=== PATIENT | male | born 1985 | race Caucasian/White ===

== ENCOUNTER 2023-02-07 13:15 | Inpatient (IN) | payer SELFPAY ==
[2023-02-07 14:00] VITALS: BP 111/63; PULSE 90; RESP 14; TEMP 37.2; O2SAT 96
[2023-02-07 15:29] VITALS: BMI 24.5
--- NOTE | 2023-02-07 15:54 | EX.PCM.HP.RE ---
HPI - General General Date of Admission: 02/07/23 Date of Service: 02/07/23 Chief Complaint: Here for 3 hours daily rehabilitation. HPI Narrative CELI CRUZ, is a 37 Male who presents with followin01/31/2023 Admit to Hospital for trauma. Riding bucking horse, horn of saddle jammed into suprapubic region, immediate suprapubic, right hip pain, no fall, no LOC, no head injury. Difficulty walking afterwards. Blood pressure 90 systolic given 1 liter LR, 1 unit PRBC. Suprapubic region hit by horn of saddle, voiding well. No hematuria, suprapubic pain, right hip pain. Hypotensive. CT A/P extraperitoneal hematoma, pubic diastasis. CT cystogram negative for injury. Orthopedics, bedrest for pubic diastasis. Transfuse blood for hematoma, acute blood loss anemia. Hematoma of perineum, scrotum, base of pelvis. [place] with yellow urine. Hold DVT prophylaxis. PT/OT debility. 02/02/2023 Open versus closed reduction internal fixation of pelvis CRPP (closed reduction percutaneous pinning). 02/04/2023 Increase pain after PT, pain improved overnight. Tolerating light PO intake, [place] out. Anterior pelvic hemovac in place. NWB BLE, slide transfer for 8 weeks (03/28/2023). Lovenox, SCD's, KUNAL's DVT prophylaxis. Perioperative Cefazolin complete. 02/06/2023 Anxious, seeking counseling for PTSD. Lovenox 30mg sc q12 dvt prophylaxis. Pain 3 out of 10. Miralax, senokot-s, Magnesium citrate bowel regimen. 02/07/2023 Admit to with debility, here for 3 hours daily rehabilitation, strengthening, prior to disposition determination. [facility] Medical History (Updated 02/07/23 @ 16:[address] Kenji Chaves MD) Pelvic fracture Trauma Home Medications acetaminophen 500 mg tablet 1,000 mg PO Q8H pain 02/07/23 [History Last Taken 02/07/23] ascorbic acid (vitamin C) 500 mg tablet 500 mg PO DAILY spplement 02/07/23 [History Last Taken 02/07/23] celecoxib 100 mg capsule (Celebrex) 100 mg PO BID Anti-inflammatory 02/07/23 [History Last Taken 02/07/23] enoxaparin 40 mg/0.4 mL subcutaneous syringe (Lovenox) 40 mg subcut DAILY DVT prevention 02/07/23 [History Last Taken 02/07/23] ferrous sulfate 325 mg (65 mg iron) tablet (Iron (ferrous sulfate)) 325 mg PO QODAY supplement 02/07/23 [History Last Taken 02/07/23] folic acid 1 mg tablet 1 mg PO DAILY supplement 02/07/23 [History Last Taken 02/07/23] melatonin 3 mg capsule 3 mg PO QHS sleep 02/07/23 [History Last Taken 02/06/23] methocarbamol 750 mg tablet 750 mg PO Q6H muscle relaxer 02/07/23 [History Last Taken 02/07/23] oxycodone 5 mg tablet 5 mg PO Q4H pain 02/07/23 [History Last Taken 02/07/23] Allergy/AdvReac Type Severity Reaction Status Date / Time No Known Allergies Allergy Verified 02/07/23 14:39 Family History no significant family his Surgical History no surgical history Social History (Updated 02/07/23 @ 16:[address] Kenji Chaves MD) household members: adopted family Smoking Status: Never smoker alcohol intake: never substance use type: does not use ROS Constitutional Constitutional: Denies chills, fever(s) or weight gain ENT HEENT: Denies headache(s), nasal congestion or nasal discharge Cardiovascular Cardiovascular: Denies chest pain or palpitations Respiratory/Chest Respiratory/Chest: Denies cough, excessive phlegm production or shortness of breath with exertion Gastrointestinal Gastrointestinal: Denies abdominal pain, nausea or vomiting Genitourinary Genitourinary: Denies dysuria Musculoskeletal Musculoskeletal: Denies joint pain or joint swelling Integumentary Integumentary: Denies rash or wounds Neurologic Neurologic: Denies focal weakness, numbness or tingling Psychiatric Psychiatric: Denies anxiety, auditory hallucinations, depression, homicidal ideation or suicidal ideation Vital Signs Vital Signs Vital Signs: 02/07/23 14:00 Temperature 99.0 F Temperature Source Temporal Pulse Rate 90 Respiratory Rate 14 Blood Pressure 111/63 Blood Pressure Mean 79 Blood Pressure Source Monitor Blood Pressure Position Semi-Fowlers Blood Pressure Location Right Arm Pulse Ox 96 Oxygen Delivery Method Room Air Weight Weight: 73 kg Body Mass Index (BMI) 24.5 Indicators for Scoring Admitted with or Primary Diagnosis of CVA/Stroke: No Hx of CVA/Stroke: No Modified Perlita Score MRS Score at time of Evaluation: 4-Moderate/severe disability Physical Exam Const alert General Appearance: cooperative HEENT normocephalic Eyes PERRL and EOMs intact bilaterally Neck supple, no JVD and no carotid bruits Resp normal respiratory effort, normal air movement and clear to auscultation bilaterally Cardio regular rate and regular rhythm GI normal to inspection, nondistended, normoactive bowel sounds, non-tender and non-distended Extremity normal capillary refill General Extremity: Negative for edema Skin no rashes or lesions noted General Skin Exam: no breakdown Psych affect normal Appearance: appropriate Assessment & Plan Assessment/Plan (1) Acute blood loss anemia: (2) Hematoma of extraperitoneal space: (3) Debility: (4) Pelvic fracture: PLAN: Plan 37 year old male with below past medical history hospitalized for traumatic horseback riding accident, pelvic diastasis, extraperitoneal hematoma, acute blood loss anemia, underwent ORIF (Open reduction internal fixation symphysis pubis/CRPP (Closed reduction percutaneous pinning) 02/02/2023 admitted to for 3 hours daily rehabilitation, strengthening, prior to disposition determination. Debility - PT/OT. Pain - Tylenol 1000mg q8, Oxycodone 5-10mg q4 prn. Bowel - Miralax 17gm daily, senna/colace 2 tablets bid, Dulcolax 10mg pr x 1 prn, MOM 30ml po x 1 prn. DVT prophylaxis - Lovenox 40mg sc daily. Vitamin C deficiency - Vitamin C 500mg daily. Osteoarthritis - Celebrex 100mg bidcm. Iron deficiency anemia - Ferrous sulfate 325mg every other day. Folate deficiency - Folic acid 1mg daily. Insomnia - Melatonin 3mg qhs. Muscle spasm - Robaxin 750mg q6.
[2023-02-07] MEDS: Methocarbamol 750 MG Tablet PO (16:04)
[2023-02-07] MEDS: Celecoxib 100 MG Capsule PO (16:04)
[2023-02-07] MEDS: oxyCODONE 5 MG Tablet PO (18:10)
[2023-02-07 20:00] VITALS: BP 115/73; PULSE 90; RESP 20; TEMP 37.2; O2SAT 96
[2023-02-07] MEDS: MELATONIN 3 MG TABLET PO (21:00)
[2023-02-07] MEDS: Acetaminophen 500 MG Tablet 1000 MG PO (21:00)
[2023-02-07] MEDS: Senna/Docusate Sodium 1 Tablet 2 TABLET PO (21:00)
[2023-02-08] MEDS: Methocarbamol 750 MG Tablet PO ×5 (00:57→23:06)
[2023-02-08] MEDS: oxyCODONE 5 MG Tablet PO (05:04)
[2023-02-08] MEDS: Acetaminophen 500 MG Tablet 1000 MG PO ×3 (05:05→21:33)
[2023-02-08] MEDS: Enoxaparin 40 MG/0.4 ML Syringe SC (05:05)
[2023-02-08 07:36] VITALS: BP 125/69; PULSE 99; RESP 16; TEMP 37.2; O2SAT 94
[2023-02-08 08:10] VITALS: O2SAT 96
[2023-02-08] MEDS: Folic Acid 1 MG Tablet PO (08:34)
[2023-02-08] MEDS: Senna/Docusate Sodium 1 Tablet 2 TABLET PO ×2 (08:34→21:33)
[2023-02-08] MEDS: Ascorbic Acid 500 MG Tablet PO (08:34)
[2023-02-08] MEDS: Celecoxib 100 MG Capsule PO ×2 (08:34→17:37)
[2023-02-08 09:34] LABS: Absolute Lymphocyte Count 1.64 X10^3/uL (0.83-4.51); Basophil# 0.08 X10^3/uL; Eosinophil# 0.72 X10^3/uL; Eosinophils% 8.9 % (0-5); Hematocrit 29.1 % (40-54); Hemoglobin 9.9 g/dL (13.0-16.5); Lymphocyte # 1.64 X10^3/ul (0.83-4.51); Lymphocyte % 20.2 % (19-41); Mean Corpuscular Hgb 32.1 pg (27.0-32.0); Mean Corpuscular Volume 94.5 fL (80-94); Mean Platelet Vol. 8.5 fl (6.2-12.0); Monocyte# 0.66 X10^3/uL; Monocyte% 8.1 % (0-10); NRBC Flagged by Analyzer 0 % (0-5); Neutrophil # 4.95 X10^3/uL (2.7-7.7); Neutrophil % 60.8 % (47-70); Platelet Count 453 K/mm3 (150-450); RBC Distribution Width CV 12.4 % (11.6-14.6); RBC Distribution Width SD 41.1 fl (35.1-43.9); Red Blood Count 3.08 M/mm3 (4.6-6.2); White Blood Count 8.1 K/mm3 (4.4-11.0)
[2023-02-08 10:10] LABS: ALB/GLOB Ratio 0.8 RATIO (0.9-2.4); AST(SGOT) 30 U/L (15-37); Alanine Aminotransfer ALT/SGPT 35 U/L (16-61); Albumin, Serum 3.1 g/dL (3.2-5.0); Alkaline Phosphatase 45 U/L (45-117); Anion Gap 5 (5-15); BUN 21 mg/dL (7-18); BUN/Creat Ratio 26.4 RATIO (10-20); Calcium,Total 8.6 mg/dL (8.5-10.1); Chloride 104 mmol/L (98-107); EST Glomerular Filtration Rate 115 mL/min (>60); Est Glom Filt Rate - Afr Amer 140 mL/min (>60); Estimated Creatinine Clearance 121.13 ml/min; Globulin 3.9 g/dL (2.2-4.2); Glucose 129 mg/dL (74-106); Magnesium 2.1 mg/dL (1.6-2.6); Phosphorus 3.2 mg/dL (2.5-4.9); Potassium 3.5 mmol/L (3.5-5.1); Sodium Level 135 mmol/L (136-145)
--- NOTE | 2023-02-08 10:39 | PCM.RU.PYE ---
Admission Information Primary Diagnosis:: pelvic diastasis, extraperitoneal hematoma, acute blood loss anemia Status Changes from Prescreening?: No changes Identified Actual Problem List:: Bleeding, Pain, ALteration in Cmfrt, Mobility Impaired, Self Care Deficit, Ineffective Communication, Know.Dfct/Disease Process and Alteration-Leisure Activ. Potential Problem List:: DVT, Bleeding, Infection, UTI, Aspiration, Falls, Skin Integrity and Depression Risk of Complications DVT: LMWH Bleeding: Monitor Lab Values, Nursing to Teach Precautions for anti-coagulation therapy., Wound, if applicable, to be assessed every shift. and Stroke patients assessed for lethargy or change in status. Infection: Clinical Staff to Monitor for S/S of infection: and S/S of infection include fever, redness, warmth, etc. Urinary Tract Infection: Monitor for frequency, burning, discomfort, or incontinence. and Nursing will obtain urine sample for urinalysis and C&S when ordered. Aspiration: Clinical staff will monitor for coughing, drooling, congestion., Speech will evaluate swallowing and dsyphasia. and Nursing will monitor patient swallowing during meals. Falls: Patient will be evaluated for Fall Precautions and Patient will be placed on Fall Precautions as indicated per protocol. Skin Breakdown: Nursing will assess skin daily using assessment tool. and Nursing will place on Skin Breakdown Precautions as indicated. Pain: Clinical staff will assess patient's pain level per protocol., Medications will be given, if needed, and the pain level reassessed. and Other methods: Massage, distraction, decrease stimulus, etc. used PRN. Plan of Care Patient requires physician specializing in physical medicine and rehab oversight to provide close medical supervision of rehab issues including: Pain Management, Sleep Problems, Bowel and Bladder, Medical and co-morbidity Management, DVT prophylaxis, Rehabilitation Leadership and Coordination of treatment team Patient needs Physical Therapy: At least 5 out of 7 days and For a minimum of 1.5 hrs Patient needs Physical Therapy to improve:: Mobility, Strengthening, Transfers, Stretching, ROM and Endurance Patient needs Occupational Therapy: At least 5 out of 7 days and For a minimum of 1.5 hrs Patient needs Occupational Therapy to improve ADL's incl.: Eating, Grooming, Bathing, Dressing, Toileting, Toilet transfers, Community Reintegration, Higher functioning activities, Household tasks, Adaptive Equipment and Other activities as determined Patient requires 24/7 Rehabilitation Nursing for: Pain Issues, Identifying and preventing risk factors, Monitoring and reporting current medical conditions, Assisting with ambulation, transfer, and all ADL's, Teaching patients about disease process and medications, Family teaching, Providing safe environment, Bowel and Bladder Issues, Skin integrity and Medication Management Patient needs Cloud Engineer/ Case Management for: Discharge Planning, Arranging Home Equipment or Services and Family Interventions Patient needs Dietary and Nutrition Services for: Adequate Nutrition, Nutritional Supplements and Nutritional Education Goals Patient will remain: free from falls and or injury at time of discharge. Patient will perform bed mobility at: - (Independent) Patient will complete transfers from bed to chair at: - (with slideboard) Patient will complete lower body dressing at: - (TN) Patient will have pain level of: of 3 or less Patient's skin will: remain intact and free from infection. Patient will receive: adequate nutrition. Discharge Planning Pt Prognosis for Sig. Practical Improv. w/in Reasonable Time: Good Estimated Length of stay (days): 28 Anticipated D/C Destination: Residential Facility Was Preadmission Assessment Accurate?: Yes
[2023-02-08 21:30] VITALS: BP 100/64; PULSE 77; RESP 16; TEMP 36.7; O2SAT 96
[2023-02-08] MEDS: MELATONIN 3 MG TABLET PO (21:33)
[2023-02-09] MEDS: Methocarbamol 750 MG Tablet PO ×4 (06:34→23:58)
[2023-02-09] MEDS: Acetaminophen 500 MG Tablet 1000 MG PO ×3 (06:34→20:27)
[2023-02-09] MEDS: Enoxaparin 40 MG/0.4 ML Syringe SC (06:34)
[2023-02-09 08:14] VITALS: O2SAT 96
[2023-02-09] MEDS: Senna/Docusate Sodium 1 Tablet 2 TABLET PO (08:44)
[2023-02-09] MEDS: Ascorbic Acid 500 MG Tablet PO (08:45)
[2023-02-09] MEDS: Celecoxib 100 MG Capsule PO ×2 (08:45→17:22)
[2023-02-09] MEDS: Ferrous Sulfate 325 MG Tablet PO (08:45)
[2023-02-09] MEDS: Folic Acid 1 MG Tablet PO (08:45)
[2023-02-09 10:00] VITALS: BP 116/74; PULSE 89; RESP 14; TEMP 36.6; O2SAT 97
[2023-02-09 20:22] VITALS: BP 120/84; PULSE 88; RESP 16; TEMP 37.1; O2SAT 97
[2023-02-09] MEDS: MELATONIN 3 MG TABLET PO (20:27)
[2023-02-10 05:53] LABS: Hematocrit 30.5 % (40-54); Hemoglobin 10.1 g/dL (13.0-16.5)
[2023-02-10 06:00] VITALS: BMI 24.5
[2023-02-10] MEDS: Acetaminophen 500 MG Tablet 1000 MG PO ×3 (06:06→21:37)
[2023-02-10] MEDS: Methocarbamol 750 MG Tablet PO ×3 (06:06→17:11)
[2023-02-10] MEDS: Enoxaparin 40 MG/0.4 ML Syringe SC (06:06)
--- NOTE | 2023-02-10 07:35 | PN.REHAB_ITS ---
Subjective Subjective Patient seen, examined. He is up in wheelchair, getting coffee. He said he had pain with therapy over the weekend, but the pain was expected with his injury, and he was able to abduct right hip, which he had trouble doing before. Objective Data Objective Data Vital Signs: Vital Signs Temp Pulse Resp BP Pulse Ox O2 Del Method 98.7 F 88 16 120/84 H 97 Room Air 02/09/23 20:22 02/09/23 20:22 02/09/23 20:22 02/09/23 20:22 02/09/23 20:22 02/09/23 20:22 Oxygen Delivery Method Room Air Weight: 73 kg Body Mass Index (BMI) 24.5 Intake & Output: Intake and Output for Last 24 Hours 02/08/23 02/09/23 02/10/23 23:59 23:59 23:59 Intake Total 760 / 760 1400 / 1400 300 / 300 Output Total 1150 / 1150 1000 / 1000 Balance -390 / -390 400 / 400 300 / 300 Lab / Micro Data Attestation: I reviewed the patient's lab results. 02/10/23 05:10 02/08/23 09:06 Labs: Laboratory Results - last 24 hr 02/10/23 05:10: Hgb 10.1 L, Hct 30.5 L Indicators for Scoring Admitted with or Primary Diagnosis of CVA/Stroke: No Hx of CVA/Stroke: No Modified Perlita Score MRS Score at time of Evaluation: 4-Moderate/severe disability Physical Exam Const alert General Appearance: cooperative HEENT normocephalic Eyes PERRL and EOMs intact bilaterally Neck supple, no JVD and no carotid bruits Resp normal respiratory effort, normal air movement and clear to auscultation bilaterally Cardio regular rate and regular rhythm GI normal to inspection, nondistended, normoactive bowel sounds, non-tender and non-distended Extremity normal capillary refill General Extremity: Negative for edema Skin no rashes or lesions noted General Skin Exam: no breakdown Psych affect normal Appearance: appropriate Assessment & Plan Assessment/Plan (1) Acute blood loss anemia: (2) Hematoma of extraperitoneal space: (3) Debility: (4) Pelvic fracture: PLAN: Plan 37 year old male with below past medical history hospitalized for traumatic horseback riding accident, pelvic diastasis, extraperitoneal hematoma, acute blood loss anemia, underwent ORIF (Open reduction internal fixation symphysis pubis/CRPP (Closed reduction percutaneous pinning) 02/02/2023 admitted to for 3 hours daily rehabilitation, strengthening, prior to disposition determination. * Debility - PT/OT. * Pain - Tylenol 1000mg q8, Oxycodone 5-10mg q4 prn. * Bowel - Miralax 17gm daily, senna/colace 2 tablets bid, Dulcolax 10mg pr x 1 prn, MOM 30ml po x 1 prn. * DVT prophylaxis - Lovenox 40mg sc daily. * Vitamin C deficiency - Vitamin C 500mg daily. * Osteoarthritis - Celebrex 100mg bidcm. * Iron deficiency anemia - Ferrous sulfate 325mg every other day. * Folate deficiency - Folic acid 1mg daily. * Insomnia - Melatonin 3mg qhs. * Muscle spasm - Robaxin 750mg q6. Capacity Capacity Assessment Tool Can the patient make a choice & communicate that choice?: Yes Can the patient understand benefits, risks and alternatives?: Yes Can the patient make a logical, rational choice?: Yes Is the choice the patient makes consistent w/ their values?: Yes Is there an impending, emergent risk to the patient?: No Does the patient have an Advance Directive?: No Is there a Surrogate Available?: Yes i.e. HCPOA: Yes i.e. close relative (spouse, child, parent, sibling)?: Yes
[2023-02-10 08:05] VITALS: BP 121/78; PULSE 85; RESP 16; TEMP 36.7; O2SAT 99
[2023-02-10] MEDS: Celecoxib 100 MG Capsule PO ×2 (08:46→17:12)
[2023-02-10] MEDS: Folic Acid 1 MG Tablet PO (08:46)
[2023-02-10] MEDS: Ascorbic Acid 500 MG Tablet PO (08:46)
[2023-02-10] MEDS: Senna/Docusate Sodium 1 Tablet 2 TABLET PO (08:47)
[2023-02-10 19:45] VITALS: BP 127/77; PULSE 77; RESP 18; TEMP 36.8; O2SAT 98
[2023-02-10] MEDS: MELATONIN 3 MG TABLET PO (21:37)
[2023-02-11] MEDS: Methocarbamol 750 MG Tablet PO ×4 (00:45→17:04)
[2023-02-11] MEDS: Enoxaparin 40 MG/0.4 ML Syringe SC (05:57)
[2023-02-11] MEDS: Acetaminophen 500 MG Tablet 1000 MG PO ×3 (05:58→21:29)
[2023-02-11 08:04] VITALS: BP 116/70; PULSE 69; RESP 16; TEMP 36.7; O2SAT 97
--- NOTE | 2023-02-11 08:35 | PN.REHAB_ITS ---
Subjective Subjective Patient seen, examined. He is asking to take a shower, midline incision is clean, okay to shower. He has pain with therapy, but it is controlled. Objective Data Objective Data Vital Signs: Vital Signs Temp Pulse Resp BP Pulse Ox O2 Del Method 98.0 F 69 16 116/70 97 Room Air 02/11/23 08:04 02/11/23 08:04 02/11/23 08:04 02/11/23 08:04 02/11/23 08:04 02/11/23 08:04 Oxygen Delivery Method Room Air Weight: 73.1 kg Body Mass Index (BMI) 24.5 Intake & Output: Intake and Output for Last 24 Hours 02/09/23 02/10/23 02/11/23 23:59 23:59 23:59 Intake Total 1400 / 1400 1380 / 1380 Output Total 1000 / 1000 300 / 300 200 / 200 Balance 400 / 400 1080 / 1080 -200 / -200 Lab / Micro Data Attestation: I reviewed the patient's lab results. 02/10/23 05:10 02/08/23 09:06 Indicators for Scoring Admitted with or Primary Diagnosis of CVA/Stroke: No Hx of CVA/Stroke: No Modified [place] Score MRS Score at time of Evaluation: 4-Moderate/severe disability Physical Exam Const alert General Appearance: cooperative HEENT normocephalic Eyes PERRL and EOMs intact bilaterally Neck supple, no JVD and no carotid bruits Resp normal respiratory effort, normal air movement and clear to auscultation bilaterally Cardio regular rate and regular rhythm GI normal to inspection, nondistended, normoactive bowel sounds, non-tender and non-distended GI Narrative: Midline incision inferior to umbilicus, clean, dry, bo intact. Extremity normal capillary refill General Extremity: Negative for edema Skin no rashes or lesions noted General Skin Exam: no breakdown Psych affect normal Appearance: appropriate Assessment & Plan Assessment/Plan (1) Acute blood loss anemia: (2) Hematoma of extraperitoneal space: (3) Debility: (4) Pelvic fracture: PLAN: Plan 37 year old male with below past medical history hospitalized for traumatic horseback riding accident, pelvic diastasis, extraperitoneal hematoma, acute blood loss anemia, underwent ORIF (Open reduction internal fixation symphysis pubis/CRPP (Closed reduction percutaneous pinning) 02/02/2023 admitted to for 3 hours daily rehabilitation, strengthening, prior to disposition determination. * Debility - PT/OT. * Pain - Tylenol 1000mg q8, Oxycodone 5-10mg q4 prn. * Bowel - Miralax 17gm daily, senna/colace 2 tablets bid, Dulcolax 10mg pr x 1 prn, MOM 30ml po x 1 prn. * DVT prophylaxis - Lovenox 40mg sc daily. * Vitamin C deficiency - Vitamin C 500mg daily. * Osteoarthritis - Celebrex 100mg bidcm. * Iron deficiency anemia - Ferrous sulfate 325mg every other day. * Folate deficiency - Folic acid 1mg daily. * Insomnia - Melatonin 3mg qhs. * Muscle spasm - Robaxin 750mg q6. Capacity Capacity Assessment Tool Can the patient make a choice & communicate that choice?: Yes Can the patient understand benefits, risks and alternatives?: Yes Can the patient make a logical, rational choice?: Yes Is the choice the patient makes consistent w/ their values?: Yes Is there an impending, emergent risk to the patient?: No Does the patient have an Advance Directive?: No Is there a Surrogate Available?: Yes i.e. HCPOA: Yes i.e. close relative (spouse, child, parent, sibling)?: Yes
[2023-02-11] MEDS: Folic Acid 1 MG Tablet PO (08:54)
[2023-02-11] MEDS: Celecoxib 100 MG Capsule PO ×2 (08:54→17:04)
[2023-02-11] MEDS: Ferrous Sulfate 325 MG Tablet PO (08:54)
[2023-02-11] MEDS: Ascorbic Acid 500 MG Tablet PO (08:55)
[2023-02-11 20:16] VITALS: BP 115/76; PULSE 88; RESP 18; TEMP 37.4; O2SAT 96
[2023-02-11] MEDS: MELATONIN 3 MG TABLET PO (21:29)
[2023-02-11] MEDS: Senna/Docusate Sodium 1 Tablet 2 TABLET PO (21:29)
[2023-02-12] MEDS: Methocarbamol 750 MG Tablet PO ×5 (00:09→23:42)
[2023-02-12 06:07] LABS: Hematocrit 32.4 % (40-54); Hemoglobin 10.5 g/dL (13.0-16.5)
[2023-02-12] MEDS: Enoxaparin 40 MG/0.4 ML Syringe SC (06:25)
[2023-02-12] MEDS: Acetaminophen 500 MG Tablet 1000 MG PO ×3 (06:25→20:51)
[2023-02-12] MEDS: Ascorbic Acid 500 MG Tablet PO (07:49)
[2023-02-12] MEDS: Folic Acid 1 MG Tablet PO (07:49)
[2023-02-12] MEDS: Celecoxib 100 MG Capsule PO ×2 (07:49→16:57)
[2023-02-12 08:57] VITALS: BP 127/63; PULSE 79; RESP 17; TEMP 36.6; O2SAT 96
[2023-02-12 19:11] VITALS: BP 104/70; PULSE 90; RESP 16; TEMP 37.2; O2SAT 96
[2023-02-12] MEDS: Senna/Docusate Sodium 1 Tablet 2 TABLET PO (20:51)
[2023-02-12] MEDS: MELATONIN 3 MG TABLET PO (20:51)
[2023-02-13] MEDS: Acetaminophen 500 MG Tablet 1000 MG PO ×3 (05:37→20:46)
[2023-02-13] MEDS: Enoxaparin 40 MG/0.4 ML Syringe SC (05:37)
[2023-02-13] MEDS: Methocarbamol 750 MG Tablet PO ×4 (05:37→23:02)
--- NOTE | 2023-02-13 08:16 | EX.PCM.PN.RE ---
Subjective Subjective Patient was admitted for daily rehab following a hospital stay for a pelvic fracture and hematoma s/p ORIF following an incident riding his horse. He was seen today on TEAM rounds. No events overnight. Per therapy, he continues to do very well. He is at set up level and does his own hygiene and dressing. He will use the slide board for transfers and gets around with the wheelchair without difficulty. He is anxious to go home. He denies any pain currently. He is eating well and moving his bowels. He has no questions or concerns at this time. Objective Data Objective Data Vital Signs: Vital Signs Temp Pulse Resp BP Pulse Ox O2 Del Method 98.9 F 90 16 104/70 96 Room Air 02/12/23 19:11 02/12/23 19:11 02/12/23 19:11 02/12/23 19:11 02/12/23 19:11 02/12/23 19:11 Oxygen Delivery Method Room Air Weight: 161 lb 2.526 oz Body Mass Index (BMI) 24.5 Intake & Output: Intake and Output for Last 24 Hours 02/11/23 02/12/23 02/13/23 23:59 23:59 23:59 Intake Total 1160 / 1160 1880 / 1880 250 / 250 Output Total 200 / 200 Balance 960 / 960 1880 / 1880 250 / 250 Lab / Micro Data Attestation: I reviewed the patient's lab results. 02/12/23 05:10 02/08/23 09:06 Indicators for Scoring Admitted with or Primary Diagnosis of CVA/Stroke: No Hx of CVA/Stroke: No Modified Perlita Score MRS Score at time of Evaluation: 4-Moderate/severe disability Physical Exam Const alert, oriented x3, no apparent distress and well nourished Constitutional Narrative: laying in bed General Appearance: cooperative and comfortable; Negative for in distress, ill appearing or diaphoretic Orientation / Consciousness: awake, oriented to person, oriented to place and oriented to time Exam Limitations: Negative for altered mental status HEENT normocephalic and head/scalp atraumatic Head and Scalp: normocephalic and atraumatic Face and Sinus: normal facial exam Eyes General Eye: normal appearance of both eyes Chest inspection of chest normal Chest: symmetrical chest wall rise Resp normal respiratory effort, normal air movement, no use of accessory muscles and clear to auscultation bilaterally Resp Narrative: anterior lung auscultation Effort and Inspection: able to speak in complete sentences and symmetric chest movement; Negative for respiratory distress or audible wheezes Auscultation: clear to auscultation bilaterally Cardio regular rate, regular rhythm and no murmurs Rate: regular rate Rhythm: regular rhythm Heart Sounds: Negative for murmur GI normal to inspection, nondistended, normoactive bowel sounds, soft to palpation and non-distended Auscultation: normoactive bowel sounds Palpation: soft and tender suprapubic (mild); Negative for guarding Extremity normal to inspection General Extremity: Negative for edema Skin no rashes or lesions noted Skin Narrative: Bo are intact General Skin Exam: no breakdown Lesions: no lesions Rashes: no rashes Neuro oriented x3 Sensorium / Orientation: awake, alert, oriented to person, oriented to place and oriented to time Speech: speech normal Psych mental status grossly normal, cooperative, affect normal and speech normal Appearance: grossly normal Attitude: calm Assessment & Plan Assessment/Plan (1) Debility: PLAN: Will continue with PT/OT and follow up on findings and recommendations. Goal for discharge home on 02/15. He will need a slideboard for transfers upon discharge. No other equipment needs. Continue with PRN pain management, bowel regimen and fall precautions. (2) Pelvic fracture: QUALIFIERS: Encounter type: subsequent encounter Fracture alignment: displaced Fracture healing: with routine healing Fracture type: closed Pelvic bone location: unspecified part of pelvis Qualified Code(s): S32.9XXD - Fracture of unspecified parts of lumbosacral spine and pelvis, subsequent encounter for fracture with routine healing PLAN: Patient is s/p ORIF. He will remain NWB BLE, slide transfer for a total of 8 weeks, until 03/28/2023. He will need to follow up with orthopedics upon discharge from inpatient rehab. Will try to reach out to surgeon to determine when bo can be removed and ideal anticoagulation time period. (3) S/P ORIF (open reduction internal fixation) fracture: PLAN: As above. (4) Acute blood loss anemia: PLAN: Hemoglobin level has improved since arrival. Will continue to monitor. (5) Hematoma of extraperitoneal space: PLAN: As above. Charges/Coding Visit Charges Inpatient E&M: 86913 Subs Hosp L2
[2023-02-13] MEDS: Folic Acid 1 MG Tablet PO (08:31)
[2023-02-13] MEDS: Ferrous Sulfate 325 MG Tablet PO (08:31)
[2023-02-13] MEDS: Celecoxib 100 MG Capsule PO ×2 (08:31→16:18)
[2023-02-13] MEDS: Ascorbic Acid 500 MG Tablet PO (08:31)
--- NOTE | 2023-02-13 09:25 | CASEMGMT ---
Social Work IDT met with patient, mother, friend and friends for Team meeting. Discussed patient's progress in PT/OT/SN. Pt has self-paid through 02/14. Nursing to inquire about ortho f/u prior to DC. Offered DC 02/15. Confirmed pt has all DME, but the slideboard. SW to refer to [facility] and provide pricing to pt. No further therapy recommended. Friend to transport. Faxed referral to [facility] for slideboard. Plan: DC home 02/15, slideboard, no further therapy Laura Traore, ACCOUNTING RECONCILIATION CLERK CLAY M[employer]ER
[2023-02-13 09:36] VITALS: BP 101/62; PULSE 95; RESP 17; TEMP 36.2; O2SAT 97
--- NOTE | 2023-02-13 10:04 | NURSING ---
Addendum entered by Almaz Cabello 02/13/23 11:20: Dr Wang's office returned calling stating he would accept the pt. F/U appt made Original Note: L.M. for Dr Wang's nurse asking if he would be willing to take on the patients case. Waiting for return call.
--- NOTE | 2023-02-13 11:18 | NURSING ---
Tu for Dr Jang's office requesting when bo can be removed and if he would like the pt to be on coagulation therapy d/t NWB status.
--- NOTE | 2023-02-13 14:09 | CASEMGMT ---
Social Work SW updated [facility] Liaison on DC date and liaison noted that pt would need to pay for 02/14. SW spoke with pt and pt does not want to pay the extra day. SW agreed and will change DC to 02/14. IDT updated. [employer] updated. Plan: DC home 02/14, slideboard, no therapy needs Laura Traore, RAIL SWITCHMAN DISCHARGE PLANNER
[2023-02-13] MEDS: MELATONIN 3 MG TABLET PO (20:46)
[2023-02-13 21:17] VITALS: BP 106/69; PULSE 90; RESP 18; TEMP 36.8; O2SAT 96
[2023-02-14] MEDS: Methocarbamol 750 MG Tablet PO ×2 (06:02→11:41)
[2023-02-14] MEDS: Acetaminophen 500 MG Tablet 1000 MG PO (06:02)
[2023-02-14] MEDS: Enoxaparin 40 MG/0.4 ML Syringe SC (06:02)
[2023-02-14] MEDS: Celecoxib 100 MG Capsule PO (08:16)
[2023-02-14] MEDS: Folic Acid 1 MG Tablet PO (08:17)
[2023-02-14] MEDS: Ascorbic Acid 500 MG Tablet PO (08:17)
[2023-02-14 08:40] VITALS: BP 107/61; PULSE 85; RESP 16; TEMP 37.2; O2SAT 97
--- NOTE | 2023-02-14 09:27 | EX.DISCHREH ---
Providers Date of Admission: 02/07/23 Date of Discharge: 02/14/23 Reason For Visit: PELVIC ORIF Diagnosis Discharge Diagnosis (1) Debility: Status: Acute Code(s): R53.81 - Other malaise Plan: Will discharge home with orthopedic follow up on 02/14. Therapy will be determined by orthopedics. For now, patient will remain [facility]B until 03/28/2023. Slideboard ordered for home equipment. Patient declined oxycodone upon discharge. Will continue with muscle relaxer. DVT prophylaxis will be maintained until seen and assessed by orthopedics on 02/17. (2) Pelvic fracture: Status: Acute Code(s): S32.9XXA - Fracture of unspecified parts of lumbosacral spine and pelvis, initial encounter for closed fracture Qualifiers: Encounter type: subsequent encounter Pelvic bone location: unspecified part of pelvis Fracture type: closed Fracture alignment: nondisplaced Fracture healing: with routine healing Qualified Code(s): S32.9XXD - Fracture of unspecified parts of lumbosacral spine and pelvis, subsequent encounter for fracture with routine healing Plan: As above. Shalom will be removed at visit on 02/17. (3) S/P ORIF (open reduction internal fixation) fracture: Status: Acute Code(s): Z98.890 - Other specified postprocedural states; Z87.81 - Personal history of (healed) traumatic fracture Plan: As above. (4) Acute blood loss anemia: Status: Acute Code(s): D62 - Acute posthemorrhagic anemia Plan: Hemoglobin level has improved since arrival. Will continue to monitor. Will continue oral iron supplements. (5) Hematoma of extraperitoneal space: Status: Acute Code(s): K68.3 - Retroperitoneal hematoma Plan: As above. Medications at Discharge Home Medications acetaminophen 500 mg tablet 1,000 mg PO Q8H pain 02/07/23 ascorbic acid (vitamin C) 500 mg tablet 500 mg PO DAILY spplement 02/07/23 folic acid 1 mg tablet 1 mg PO DAILY supplement 02/07/23 melatonin 3 mg capsule 3 mg PO QHS sleep 02/07/23 celecoxib 100 mg capsule (Celebrex) 100 mg PO BID Anti-inflammatory #60 caps 02/14/23 enoxaparin 40 mg/0.4 mL subcutaneous syringe (Lovenox) 40 mg (0.4 mL) subcut DAILY DVT prevention #5 mL 02/14/23 ferrous sulfate 325 mg (65 mg iron) tablet (Iron (ferrous sulfate)) 325 mg PO QODAY supplement #15 tabs 02/14/23 methocarbamol 750 mg tablet 750 mg PO Q6H PRN muscle relaxer #40 tabs 02/14/23 Hospital Course Summary of Care Provided Hospital Course: Patient came as a transfer from [facility] [place] for therapy purposes. He initially presented to the ED there on 01/31 with complaints of suprapubic pain after the horn of the saddle jammed into that area while riding his horse. Imaging showed a hematoma and pubic diastasis. He underwent an ORIF on 02/02 which went well. The patient remained stable. Therapy saw him who felt he would benefit from rehab, and was transferred to [facility] inpatient [facility] on 02/07. The patient worked very well with therapy and it was felt he could be safely discharged home with outpatient follow up on 02/14. Today, the patient reports he is feeling well. He reports some pain in his back, that he relates to the wheelchair. He is motivated to go home. He does not want to take any narcotics and wishes to just continue with the muscle relaxers upon discharge. He has no other questions or concerns at this time. Physical Exam Const alert, oriented x3, no apparent distress and well nourished Constitutional Narrative: sitting up in the wheelchair General Appearance: cooperative and comfortable; Negative for in distress, ill appearing or diaphoretic Orientation / Consciousness: awake, oriented to person, oriented to place and oriented to time Exam Limitations: Negative for altered mental status HEENT normocephalic and head/scalp atraumatic Head and Scalp: normocephalic and atraumatic Face and Sinus: normal facial exam Eyes General Eye: normal appearance of both eyes Chest inspection of chest normal Chest: symmetrical chest wall rise Resp normal respiratory effort, normal air movement, no use of accessory muscles and clear to auscultation bilaterally Effort and Inspection: able to speak in complete sentences and symmetric chest movement; Negative for respiratory distress or audible wheezes Auscultation: clear to auscultation bilaterally Cardio regular rate, regular rhythm and no murmurs Rate: regular rate Rhythm: regular rhythm Heart Sounds: Negative for murmur GI normal to inspection, nondistended, normoactive bowel sounds, soft to palpation and non-distended Auscultation: normoactive bowel sounds Palpation: soft and tender suprapubic (mild); Negative for guarding Back/Spine Thoracic Spine / Upper Back: Negative for thoracic spinal tenderness Lumbar Spine / Lower Back: Negative for lumbar spinal tenderness Extremity normal to inspection General Extremity: Negative for edema Skin no rashes or lesions noted Skin Narrative: Shalom are intact General Skin Exam: no breakdown Lesions: no lesions Rashes: no rashes Neuro oriented x3 Sensorium / Orientation: awake, alert, oriented to person, oriented to place and oriented to time Speech: speech normal Psych mental status grossly normal, cooperative, affect normal and speech normal Appearance: grossly normal Attitude: calm Weight / BMI Weight Weight: 161 lb 2.526 oz Body Mass Index (BMI) 24.5 ABG / Lab / Microbiology Data 02/12/23 05:10 02/08/23 09:06 Indicators for Scoring Admitted with or Primary Diagnosis of CVA/Stroke: No Hx of CVA/Stroke: No Modified [place] Score MRS Score at time of Evaluation: 3-Moderate disability D/C Instructions Discharge Diet: No restrictions Discharge Activity: - (Non weight bearing until 03/28/2023 and cleared by orthopedics) Weight Bearing Status: No weight bearing Call your doctor if your incision/area has: Sudden Increased Bleeding, Increased Pain/ Swelling, Increased Redness and Foul Smelling Discharge Call your doctor if you observe: Fever of 101 or Higher, Inability to urinate, Inability to have a bowel movement and Uncontrolled pain Cleanse incision/area with: Soap & Water Please Follow Up With: Sukh Wang MD When: 02/17 as scheduled Meaningful Use Info Meaningful Use Diagnoses (Choose all that apply): None applicable Discharge Plan Admission Admit Date/Time: 02/07/23 13:15 Primary Reason for Your Visit: debility - pelvic fracture and hematoma s/p ORIF Attending Provider: Kenji Chaves Chi Discharge Orders/Prescriptions Prescriptions: Continued acetaminophen 500 mg tablet 1,000 mg PO Q8H ascorbic acid (vitamin C) 500 mg tablet 500 mg PO DAILY folic acid 1 mg tablet 1 mg PO DAILY melatonin 3 mg capsule 3 mg PO QHS ferrous sulfate [Iron (ferrous sulfate)] 325 mg (65 mg iron) tablet 325 mg PO QODAY Qty: 15 0RF celecoxib [Celebrex] 100 mg capsule 100 mg PO BID Qty: 60 0RF enoxaparin [Lovenox] 40 mg/0.4 mL syringe 40 mg subcut DAILY Qty: 5 0RF Changed methocarbamol 750 mg tablet 750 mg PO Q6H PRN (Reason: muscle relaxer) Qty: 40 0RF Discontinued oxycodone 5 mg tablet 5 mg PO Q4H Referrals / Follow Up: Jolly Tate MD [Med Staff - Active Staff] - 04/17/23 9:40 am Sukh Wang MD [Med Staff - Active Staff] - 02/17/23 1:30 pm Disposition Disposition (needs filled in before D/C Order can be placed): Home, Self Care Charges/Coding Visit Charges Inpatient E&M: [id number] Disch Hosp >30min
[2023-02-14 12:30] VITALS: BP 107/61; PULSE 85; RESP 16; TEMP 37.2; O2SAT 97
--- NOTE | 2023-02-14 13:00 | NURSING ---
family and patient aware of dc instruct and verbalized understanding.
== END 2023-02-14 12:30 | disposition home or self-care (01) | DRG 559 ==
PROVIDERS: Admitting Provider Family Medicine Geriatric Medicine; Visit Provider Family Medicine Geriatric Medicine
DX: S32.9XXD Fracture of unspecified parts of lumbosacral spine and pelvis, subsequent encounter for fracture with routine healing (principal); K68.3 Retroperitoneal hematoma; D62 Acute posthemorrhagic anemia; E53.8 Deficiency of other specified B group vitamins; Z79.01 Long term (current) use of anticoagulants; V80.010D Animal-rider injured by fall from or being thrown from horse in noncollision accident, subsequent encounter; Z79.899 Other long term (current) drug therapy
CPT/HCPCS: 36415; 80053; 83735; 84100; 85014; 85018; 85025; 94668; 97110; 97112; 97162; 97165; 97530; 97535; 97542; 97802; 97803